=== PATIENT | female | born 1980 | race African-American/Black ===

== ENCOUNTER 2016-08-11 12:13 | Emergency (ER) | payer BC ==
[2016-08-11 11:47] LABS: URINE SOURCE CLEAN CATCH
[2016-08-11 11:53] LABS: URINE APPEARANCE CLEAR; URINE BILIRUBIN NEG (NEG); URINE BLOOD NEG (NEG); URINE COLOR YELLOW; URINE GLUCOSE NEG (NEG); URINE KETONE TRACE (NEG); URINE LEUKOCYTE ESTERASE TRACE (NEG); URINE NITRATE NEG (NEG); URINE PH 7.5 (5-8); URINE PROTEIN NEG (NEG); URINE SPECIFIC GRAVITY 1.031 (1.003-1.035)
[2016-08-11 11:55] LABS: CULTURE INDICATED? YES; URBCS1 AUWI 0-2 /[HPF] (0-2); URINE BACTERIA AUWI 1+ (NEGATIVE); URINE SQUAMOUS EPITHELIAL CELL FEW /[HPF]
[~2016-08-11 12:13] MED LIST: CIPRO PO; CIPRO250 MG PO; DIFLUCAN100 MG PO; FLAGYL PO; FLEXERIL10 MG PO; IBUPROFEN800 MG PO; TRAMADOL HCL50 M1 PO; VOLTAREN75 MG PO
[2016-08-13 03:00] LABS: CHLAMYDIA TRACH Not Detected (Not Detected); N GONOR Not Detected (Not Detected)
== END 2016-08-11 13:20 | disposition home or self-care (01) ==
LOC: CFTX 12:13
PROVIDERS: Nurse Practitioner
DX: N76.0 Acute vaginitis (principal); Z98.51 Tubal ligation status
CPT/HCPCS: 81003; 84703; 87086; 87491; 87591; 87808; 87905; 99284

== ENCOUNTER 2016-08-12 11:50 | Emergency (ER) | payer OTHER | END 2016-08-12 12:41 | disposition home or self-care (01) | LOC: CED 11:50 | DX: S29.012A Strain of muscle and tendon of back wall of thorax, initial encounter (principal); X50.9XXA Other and unspecified overexertion or strenuous movements or postures, initial encounter; Y92.69 Other specified industrial and construction area as the place of occurrence of the external cause; Y99.0 Civilian activity done for income or pay | CPT/HCPCS: 96372; 99283; J1885 ==

== ENCOUNTER 2016-11-03 20:24 | Emergency (ER) | payer BC ==
[~2016-11-03] VITALS: Ht 172.7 cm; Wt 67.1 kg
[2016-11-03 22:18] LABS: URINE SOURCE CLEAN CATCH
[2016-11-03 22:24] LABS: URINE APPEARANCE CLEAR; URINE BILIRUBIN NEG (NEG); URINE BLOOD NEG (NEG); URINE COLOR YELLOW; URINE GLUCOSE NEG (NEG); URINE KETONE TRACE (NEG); URINE LEUKOCYTE ESTERASE TRACE (NEG); URINE NITRATE NEG (NEG); URINE PH 6.5 (5-8); URINE PROTEIN TRACE (NEG); URINE SPECIFIC GRAVITY 1.034 (1.003-1.035)
[2016-11-03 22:26] LABS: CULTURE INDICATED? YES; URBCS1 AUWI 0-2 /[HPF] (0-2); URINE BACTERIA AUWI 1+ (NEGATIVE); URINE SQUAMOUS EPITHELIAL CELL FEW /[HPF]
[2016-11-05 23:07] LABS: CHLAMYDIA TRACH Not Detected (Not Detected); N GONOR Not Detected (Not Detected)
== END 2016-11-03 23:13 | disposition home or self-care (01) ==
LOC: CED 20:24 → CFTX 20:24
PROVIDERS: Physician Assistant
DX: N76.0 Acute vaginitis (principal); Z98.51 Tubal ligation status
CPT/HCPCS: 81003; 84703; 87086; 87491; 87591; 87808; 87905; 99283

== ENCOUNTER 2016-11-29 19:56 | Emergency (ER) | payer BC ==
[~2016-11-29] VITALS: Ht 172.7 cm; Wt 65.8 kg
[2016-11-29 20:14] LABS: URINE SOURCE CLEAN CATCH
[2016-11-29 20:17] LABS: URINE APPEARANCE CLEAR; URINE BILIRUBIN NEG (NEG); URINE BLOOD NEG (NEG); URINE COLOR YELLOW; URINE GLUCOSE NEG (NEG); URINE KETONE NEG (NEG); URINE LEUKOCYTE ESTERASE TRACE (NEG); URINE NITRATE NEG (NEG); URINE PROTEIN TRACE (NEG); URINE SPECIFIC GRAVITY 1.029 (1.003-1.035)
[2016-11-29 20:19] LABS: CULTURE INDICATED? NO; URBCS1 AUWI 0-2 /[HPF] (0-2); URINE BACTERIA AUWI NEG (NEGATIVE); URINE SQUAMOUS EPITHELIAL CELL OCC /[HPF]
[2016-12-02 11:09] LABS: CHLAMYDIA TRACH Not Detected (Not Detected); N GONOR Not Detected (Not Detected)
== END 2016-11-29 22:45 | disposition home or self-care (01) ==
LOC: CFTX 19:56 → CED 19:56 → CFTX 22:44
PROVIDERS: Nurse Practitioner Family
DX: N89.8 Other specified noninflammatory disorders of vagina (principal); D64.9 Anemia, unspecified
CPT/HCPCS: 81003; 84703; 87491; 87591; 87808; 87905; 99283

== ENCOUNTER 2016-12-02 20:50 | Emergency (ER) | payer BC ==
[~2016-12-02] VITALS: Ht 172.7 cm; Wt 63.5 kg
[2016-12-06 14:54] LABS: CHLAMYDIA TRACH Not Detected (Not Detected); N GONOR Not Detected (Not Detected)
== END 2016-12-02 22:45 | disposition home or self-care (01) ==
LOC: CFTX 20:50 → CED 20:50 → CFTX 21:28
PROVIDERS: Nurse Practitioner Family
DX: N76.0 Acute vaginitis (principal); D64.9 Anemia, unspecified
CPT/HCPCS: 84703; 87491; 87591; 87808; 87905; 99283